=== PATIENT | male | born 1960 | race Caucasian/White ===

== ENCOUNTER 2017-03-22 10:58 | Emergency (ER) | payer OTHER ==
[~2017-03-22] VITALS: Ht 182.9 cm; Wt 88.6 kg
[~2017-03-22 10:58] MED LIST: Coumadin dosing per PO; ENDOCET 5-3251 EACH PO; FLOMAX0.4 MG PO; Feosol PO; NOHOMEMEDS; PERCOCET 5/31 TABLET PO; TORADOL10 MG PO; ZOFRAN4 MG PO
[2017-03-22] MEDS ORDERED: FIORICET 50-301 EACH PO (12:50)
[2017-03-22 13:33] VITALS: BP 138/92
== END 2017-03-22 13:34 | disposition home or self-care (01) ==
LOC: EME 10:58
DX: S06.0X9A Concussion with loss of consciousness of unspecified duration, initial encounter (principal); S16.1XXA Strain of muscle, fascia and tendon at neck level, initial encounter; W11.XXXA Fall on and from ladder, initial encounter; Z87.442 Personal history of urinary calculi
CPT/HCPCS: 70450; 72125; 99281; 99284; J2270